=== PATIENT | male | born 1965 | race African-American/Black ===

== ENCOUNTER 2018-12-09 16:26 | Emergency (ER) | payer OTHER ==
[2018-12-09] MEDS ORDERED: Acetaminophen 325 MG TAB ONE (17:11)
[2018-12-09] MEDS ORDERED: Ketorolac Tromethamine 30 MG/ML VIAL ONE (17:11)
[2018-12-09 17:19] LABS: #Basophils 0.1 thou/uL (0.0-0.2); #Eosinphils 0.2 thou/uL (0.0-0.7); #Lymphocytes 1.6 thou/uL (1.20-3.40); #Monocytes 0.6 thou/uL (0.11-0.59); #Neutrophils 3.1 thou/uL (1.40-6.50); %Eosinophils 3.5 % (0.0-10.0); %Lymphocytes 29.1 % (21.0-51.0); %Monocytes 10.4 % (0.0-10.0); %Neutrophils 56.1 % (42.0-75.0); Hemoglobin 13.4 g/dL (14.0-18.0); Mean Corpuscular HGB CONC 33.3 g/dL (32.0-36.0); Mean Corpuscular Hemoglobin 30.5 pg (27.0-31.0); Mean Corpuscular Volume 91.4 fL (78.0-98.0); Mean Platelet Volume 8.5 fL (7.4-10.4); Platelet Count 183 thou/uL (130-400); RBC Distribution Width 12.6 % (11.5-14.5); Red Blood Cell (RBC) Count 4.39 mill/uL (4.70-6.10); White Blood Cell (WBC) Count 5.6 thou/uL (4.8-10.8)
--- NOTE | 2018-12-09 17:23 | RAD ---
Left knee 4 views: HISTORY: Atraumatic knee pain FINDINGS: Degenerative changes are present manifested by osteophyte formation and joint space narrowing. No fra cture, dislocation or bony destruction is identified. IMPRESSION: Left knee osteoarthritis
[2018-12-09 17:41] LABS: ALT (SGPT) 22 U/L (8-55); AST (SGOT) 16 U/L (5-34); Albumin 3.9 g/dL (3.5-5.0); Alkaline Phosphatase 89 U/L (40-150); Anion Gap 10 mmol/L (10-20); BUN (Urea Nitrogen) 17 mg/dL (8.4-25.7); Bilirubin, Total 0.2 mg/dL (0.2-1.2); Calc. Creatinine Clearance 0 mL/min (70-130); Calcium 8.9 mg/dL (7.8-10.44); Carbon Dioxide 27 mmol/L (22-29); Chloride 108 mmol/L (98-107); Estimated GFR-MDRD 73; Globulin 2.6 g/dL (2.4-3.5); Glucose 99 mg/dL (70-105); Potassium 4.4 mmol/L (3.5-5.1); Protein, Total 6.5 g/dL (6.0-8.3); Sodium 141 mmol/L (136-145)
--- NOTE | 2018-12-09 18:32 | ULT ---
VENOUS DOPPLER ULTRASOUND LEFT LOWER EXTREMITY: History: Left lower extremity pain. FINDINGS: Grayscale, color flow, and spectral doppler imaging of the deep venous system of the left lower extre mity was performed. There is good flow, compression, and augmentation noted in the left common femoral, femoral, deep fem oral, popliteal, posterior tibial, and greater saphenous veins. There is a small fluid collection in the lateral side of the left knee without evidence of flow. IMPRESSION: No evidence of DVT in the left lower extremity. POS: JORY
== END 2018-12-09 18:29 | disposition home or self-care (01) ==
LOC: ERS 16:26
DX: M17.12 Unilateral primary osteoarthritis, left knee (principal); K21.9 Gastro-esophageal reflux disease without esophagitis; Z79.899 Other long term (current) drug therapy
CPT/HCPCS: 36415; 80053; 85025; 85379; 85652; 86140; 96372; J1885

== ENCOUNTER 2020-05-10 12:24 | Emergency (ER) | payer OTHER ==
[2020-05-10] MEDS ORDERED: Morphine 4 MG/ML VIAL ONE (12:42)
--- NOTE | 2020-05-10 13:38 | CT ---
CT BRAIN WITHOUT CONTRAST: History: Head/facial trauma on a cabinet at his house. No loss of consciousness. Laceration of the br idge of the nose. Technique: Multiple contiguous axial images were obtained in a CT of the brain without contrast. FINDINGS: The brain is normal in morphology and attenuation without focal lesions or confluent areas of infarct ion. There is no evidence of hydrocephalus, intracranial hemorrhage, or extraaxial fluid collection. The calvarium and overlying soft tissues are unremarkable. There is mucosal thickening in the right s phenoid sinus. The other paranasal sinuses and mastoid air cells are well aerated. IMPRESSION: No evidence of acute intracranial abnormality. POS: EAA
--- NOTE | 2020-05-10 13:41 | CT ---
CT FACE WITHOUT CONTRAST: Comparison: None History: Patient hit the bridge of this nose on a cabinet at home with facial trauma and pain. There is a laceration over the bridge of the nose. Technique: Multiple contiguous axial images were obtained in a CT of the face without contrast. Sagit jorge and coronal reformats were performed. FINDINGS: Mucosal thickening is seen in the right sphenoid sinus. The other paranasal sinuses and mastoid air c ells are well aerated. No focal facial soft tissue swelling is seen. The globes and retrobulbar soft tissues are unremarkable. No facial fractures are identified. IMPRESSION: No evidence of facial fracture. POS: EAA
== END 2020-05-10 15:03 | disposition home or self-care (01) ==
LOC: ERS 12:24
DX: S01.21XA Laceration without foreign body of nose, initial encounter (principal); K21.9 Gastro-esophageal reflux disease without esophagitis; F41.9 Anxiety disorder, unspecified; F32.9 Major depressive disorder, single episode, unspecified; F20.9 Schizophrenia, unspecified; Z79.899 Other long term (current) drug therapy; W22.8XXA Striking against or struck by other objects, initial encounter
CPT/HCPCS: 12011; 70450; 70486; 96372; J2270

== ENCOUNTER 2021-04-24 12:09 | Emergency (ER) | payer OTHER | END 2021-04-24 15:17 | disposition home or self-care (01) | LOC: ERS 12:09 | DX: Z48.02 Encounter for removal of sutures (principal); K21.9 Gastro-esophageal reflux disease without esophagitis; Z79.899 Other long term (current) drug therapy ==

== ENCOUNTER 2021-08-21 15:56 | Inpatient (IN) | payer OTHER ==
[2021-08-21] MEDS ORDERED: Lorazepam 2 MG/ML VIAL ONE (16:25)
[2021-08-21] MEDS ORDERED: Fentanyl 100 MCG/2 ML VIAL ONE (16:26)
[2021-08-21] MEDS ORDERED: Ketorolac Tromethamine 30 MG/ML VIAL ONE (16:26)
[2021-08-21] MEDS ORDERED: Ondansetron ODT 4 MG TAB SL PRN (18:15)
[2021-08-21] MEDS ORDERED: Ondansetron PF 4 MG/2 ML Vial IVP PRN ×2 (18:15→19:45)
[2021-08-21 18:31] LABS: #Eosinphils 0.3 thou/uL (0.0-0.7); #Lymphocytes 1.4 thou/uL (1.20-3.40); #Monocytes 0.5 thou/uL (0.11-0.59); #Neutrophils 4.5 thou/uL (1.40-6.50); %Basophils 0.2 % (0.0-1.0); %Eosinophils 4.2 % (0.0-10.0); %Lymphocytes 21.1 % (21.0-51.0); %Monocytes 7.3 % (0.0-10.0); %Neutrophils 67.3 % (42.0-75.0); Hemoglobin 13.3 g/dL (14.0-18.0); Mean Corpuscular HGB CONC 34.1 g/dL (32.0-36.0); Mean Corpuscular Hemoglobin 28.8 pg (27.0-31.0); Mean Corpuscular Volume 84.6 fL (78.0-98.0); Mean Platelet Volume 8.7 fL (7.4-10.4); Platelet Count 202 thou/uL (130-400); RBC Distribution Width 15.2 % (11.5-14.5); Red Blood Cell (RBC) Count 4.62 mill/uL (4.70-6.10); White Blood Cell (WBC) Count 6.7 thou/uL (4.8-10.8)
[2021-08-21 18:43] LABS: INR-International Normal Ratio 0.9; PTT 28.4 sec (22.9-36.1); Prothrombin Time 12.5 sec (12.0-14.7)
[2021-08-21 18:56] LABS: ALT (SGPT) 12 U/L (8-55); AST (SGOT) 15 U/L (5-34); Albumin 3.6 g/dL (3.5-5.0); Alkaline Phosphatase 169 U/L (40-110); Anion Gap 10 mmol/L (10-20); BUN (Urea Nitrogen) 12 mg/dL (8.4-25.7); Bilirubin, Total 0.2 mg/dL (0.2-1.2); Calc. Creatinine Clearance 0 mL/min (70-130); Calcium 9.1 mg/dL (7.8-10.44); Carbon Dioxide 26 mmol/L (22-29); Chloride 108 mmol/L (98-107); Globulin 3.6 g/dL (2.4-3.5); Glucose 134 mg/dL (70-105); Potassium 4.3 mmol/L (3.5-5.1); Protein, Total 7.2 g/dL (6.0-8.3); Sodium 140 mmol/L (136-145)
[2021-08-21] MEDS ORDERED: Ondansetron ODT 4 MG TAB PO PRN (19:45)
[2021-08-21] MEDS ORDERED: Dextrose 50% Abboject 50 ML SYRINGE SLOW IVP PRN (19:45)
[2021-08-21] MEDS ORDERED: Dextrose 5% in Water 1,000 ML IV PRN (19:45)
[2021-08-21] MEDS ORDERED: hydrALAZINE 20 MG/ML VIAL SLOW IVP PRN (19:45)
[2021-08-21] MEDS ORDERED: traMADol HCl 50 MG TAB PO PRN ×2 (19:45)
[2021-08-21] MEDS: Sodium Chloride 0.9% 1,000 ML IV SCH (20:41)
[2021-08-21] MEDS: Acetaminophen 325 MG TAB PO SCH (20:47)
[2021-08-21] MEDS: Ibuprofen 200 MG TAB PO SCH (20:50)
[2021-08-21] MEDS: Famotidine 20 MG TAB PO SCH (20:50)
[2021-08-21 23:08] VITALS: BMI 43.3
[2021-08-22] MEDS: Acetaminophen 325 MG TAB PO SCH ×4 (03:09→21:30)
[2021-08-22] MEDS: Ibuprofen 200 MG TAB PO SCH ×3 (03:10→21:29)
[2021-08-22] MEDS: Cyclobenzaprine 10 MG TAB PO PRN (03:31)
[2021-08-22] MEDS: Sodium Chloride 0.9% 1,000 ML IV SCH (05:15)
[2021-08-22] MEDS: Famotidine 20 MG TAB PO SCH ×2 (09:04→21:29)
[2021-08-22] MEDS: Morphine 4 MG/ML VIAL SLOW IVP PRN (13:47)
[2021-08-22 17:28] LABS: SARS-CoV-2 PCR by NAA Not Detected (NotDetected)
[2021-08-22] MEDS: Zolpidem Tartrate 5 MG TAB PO SCH (21:29)
[2021-08-22 22:18] LABS: Amphetamine Not Detected (NotDetected); Barbiturates Screen Not Detected (NotDetected); Benzodiazepine Screen Detected (NotDetected); Cocaine Metabolite Screen Detected (NotDetected); Methadone Not Detected (NotDetected); Methamphetamine Not Detected (NotDetected); Opiate Screen Detected (NotDetected); Oxycodone Screen Not Detected (NotDetected); Phencyclidine (PCP) Not Detected (NotDetected); THC/Cannabinoid Screen Not Detected (NotDetected); Tricyclic Screen Not Detected (NotDetected)
[2021-08-23] MEDS: Acetaminophen 325 MG TAB PO SCH ×4 (01:39→20:50)
[2021-08-23] MEDS: Ibuprofen 200 MG TAB PO SCH ×3 (05:20→20:50)
[2021-08-23 05:40] LABS: Anion Gap 11 mmol/L (10-20); BUN (Urea Nitrogen) 12 mg/dL (8.4-25.7); Calc. Creatinine Clearance 141 mL/min (70-130); Calcium 8.7 mg/dL (7.8-10.44); Carbon Dioxide 26 mmol/L (22-29); Chloride 106 mmol/L (98-107); Glucose 105 mg/dL (70-105); Magnesium 2.1 mg/dL (1.6-2.6); Phosphorus 3.5 mg/dL (2.3-4.7); Potassium 3.9 mmol/L (3.5-5.1); Sodium 139 mmol/L (136-145)
[2021-08-23 05:43] LABS: Eosinophils 1 % (0-10); Hemoglobin 12.6 g/dL (14.0-18.0); Hypochromia SLIGHT = 6-15 cells (100X) (0-5/hpf); Lymphocytes 46 % (21-51); MDiff Complete? YES; Mean Corpuscular HGB CONC 33.3 g/dL (32.0-36.0); Mean Corpuscular Hemoglobin 28.9 pg (27.0-31.0); Mean Corpuscular Volume 86.7 fL (78.0-98.0); Mean Platelet Volume 8.7 fL (7.4-10.4); Monocytes 9 % (0-10); Neutrophil 41 % (42-75); Platelet Count 165 thou/uL (130-400); Platelet Morphology Comment Appears Adequate; RBC Distribution Width 15.2 % (11.5-14.5); Reactive Lymphocytes 3 % (0-10); Red Blood Cell (RBC) Count 4.35 mill/uL (4.70-6.10); White Blood Cell (WBC) Count 5.3 thou/uL (4.8-10.8)
[2021-08-23] MEDS ORDERED: ceFAZolin 2 GM/Dextrose 50 ML 2 GM in Premix Bag 1 BAG IVPB SCH (08:30)
[2021-08-23] MEDS: Famotidine 20 MG TAB PO SCH ×2 (09:27→20:50)
[2021-08-23] MEDS: Bupropion 100 MG SR TAB PO SCH (09:27)
[2021-08-23] MEDS ORDERED: Neomycin-Polymyxin 1 ML AMP ONE (10:46)
[2021-08-23] MEDS ORDERED: ceFAZolin 2 GM/DEX 5% 100 ML BAG ONE (10:59)
[2021-08-23] MEDS ORDERED: Fentanyl 100 MCG/2 ML VIAL ONE ×5 (11:23→16:21)
[2021-08-23] MEDS ORDERED: Midazolam HCl 2 mg/2 ml Vial ONE (11:34)
[2021-08-23] MEDS ORDERED: Rocuronium Bromide 10 MG/ML (10ML VIAL) ONE (12:55)
[2021-08-23] MEDS ORDERED: Lidocaine 1% PF 5 ML VIAL ONE (12:55)
[2021-08-23] MEDS ORDERED: PROPOFOL 200 MG/20 ML VIAL ONE (12:55)
[2021-08-23] MEDS ORDERED: ePHEDrine 50 MG/ML VIAL ONE (12:55)
[2021-08-23] MEDS ORDERED: Bupivacaine HCl 0.5%/Epinephrine 1:200,000/PF 30 ml Vial ONE (12:55)
[2021-08-23] MEDS ORDERED: Albumin 5% 0 ML ONE (15:12)
[2021-08-23] MEDS ORDERED: Promethazine HCl 25 MG/ML VIAL IM PRN (15:54)
[2021-08-23] MEDS ORDERED: HYDROmorphone 2 MG/ML VIAL SLOW IVP PRN (15:54)
[2021-08-23] MEDS ORDERED: Promethazine HCl 25 MG/ML VIAL IVPB PRN (15:54)
[2021-08-23] MEDS ORDERED: Ondansetron HCl/PF 4 MG/2 ML Vial IVP PRN (15:54)
[2021-08-23] MEDS ORDERED: HYDROmorphone 0.5 MG/0.5 ML SYRINGE ONE (16:43)
[2021-08-23] MEDS: ceFAZolin 2 GM/Dextrose 50 ML 2 GM in Premix Bag 1 BAG IVPB SCH (17:23)
[2021-08-23] MEDS: Morphine 4 MG/ML VIAL SLOW IVP PRN ×2 (18:58→20:51)
[2021-08-23] MEDS: Cyclobenzaprine 10 MG TAB PO PRN (20:49)
[2021-08-23] MEDS: Zolpidem Tartrate 5 MG TAB PO SCH (20:50)
[2021-08-23] MEDS: Vancomycin 1.5 GRAM/300 ML BAG 1.5 GM in Premix Bag 1 BAG IVPB SCH (20:51)
[2021-08-24] MEDS: Acetaminophen 325 MG TAB PO SCH ×5 (03:22→21:20)
[2021-08-24] MEDS: ceFAZolin 2 GM/Dextrose 50 ML 2 GM in Premix Bag 1 BAG IVPB SCH (03:23)
[2021-08-24 05:09] LABS: #Lymphocytes 1.1 thou/uL (1.20-3.40); #Monocytes 0.4 thou/uL (0.11-0.59); #Neutrophils 10.5 thou/uL (1.40-6.50); %Eosinophils 0.2 % (0.0-10.0); %Lymphocytes 9.3 % (21.0-51.0); %Monocytes 3.2 % (0.0-10.0); %Neutrophils 87.4 % (42.0-75.0); Hemoglobin 11.6 g/dL (14.0-18.0); Mean Corpuscular HGB CONC 33.4 g/dL (32.0-36.0); Mean Corpuscular Hemoglobin 28.7 pg (27.0-31.0); Mean Corpuscular Volume 85.8 fL (78.0-98.0); Mean Platelet Volume 8.6 fL (7.4-10.4); Platelet Count 202 thou/uL (130-400); RBC Distribution Width 15.2 % (11.5-14.5); Red Blood Cell (RBC) Count 4.04 mill/uL (4.70-6.10); White Blood Cell (WBC) Count 12.1 thou/uL (4.8-10.8)
[2021-08-24] MEDS: Ibuprofen 200 MG TAB PO SCH ×3 (05:50→21:17)
[2021-08-24] MEDS: Morphine 4 MG/ML VIAL SLOW IVP PRN (05:50)
[2021-08-24] MEDS ORDERED: ceFAZolin 2 GM/Dextrose 50 ML 2 GM in Premix Bag 1 BAG IVPB SCH (08:15)
[2021-08-24] MEDS: Famotidine 20 MG TAB PO SCH ×2 (09:01→21:17)
[2021-08-24] MEDS: Vancomycin 1.5 GRAM/300 ML BAG 1.5 GM in Premix Bag 1 BAG IVPB SCH (09:01)
[2021-08-24] MEDS ORDERED: HYDROcodone/Acetaminophen 7.5/325 mg Tablet PO PRN (09:05)
[2021-08-24] MEDS: HYDROcodone/Acetaminophen 7.5/325 mg Tablet PO PRN ×3 (09:12→19:17)
[2021-08-24] MEDS: Bupropion 100 MG SR TAB PO SCH (10:13)
[2021-08-24] MEDS: tiZANidine HCl 4 MG TAB PO SCH ×2 (11:47→17:07)
[2021-08-24] MEDS: Zolpidem Tartrate 5 MG TAB PO SCH (21:17)
[2021-08-25] MEDS: Acetaminophen 325 MG TAB PO SCH ×3 (02:46→14:30)
[2021-08-25] MEDS: HYDROcodone/Acetaminophen 7.5/325 mg Tablet PO PRN ×2 (03:59→09:17)
[2021-08-25] MEDS: Ibuprofen 200 MG TAB PO SCH ×2 (04:00→12:05)
[2021-08-25] MEDS: tiZANidine HCl 4 MG TAB PO SCH ×4 (05:56→17:46)
[2021-08-25] MEDS ORDERED: FLU VACC QS2021-22(6MOS UP)/PF 60 MCG/0.5 ML SYRINGE IM ONE (09:00)
[2021-08-25] MEDS: Famotidine 20 MG TAB PO SCH (09:17)
[2021-08-25 16:09] VITALS: BP 129/81; TEMP 98.6
[2021-08-25] MEDS: Bupropion 100 MG SR TAB PO SCH (16:43)
== END 2021-08-25 17:30 | disposition left against medical advice (07) | DRG 470 ==
LOC: ERS 15:56 → SURG B 17:59
PROVIDERS: ADMIT Surgery; ATTEND Surgery
PROC: 0SR903A Replacement of Right Hip Joint with Ceramic Synthetic Substitute, Uncemented, Open Approach (ICD-10-PCS; principal; 2021-08-23)
DX: M16.11 Unilateral primary osteoarthritis, right hip (principal); Z68.41 Body mass index [BMI] 40.0-44.9, adult; Z20.822 Contact with and (suspected) exposure to COVID-19; E66.01 Morbid (severe) obesity due to excess calories; F32.A Depression, unspecified; F41.9 Anxiety disorder, unspecified; F20.9 Schizophrenia, unspecified; K21.9 Gastro-esophageal reflux disease without esophagitis; G89.29 Other chronic pain; Z91.041 Radiographic dye allergy status; Z90.49 Acquired absence of other specified parts of digestive tract; Z79.899 Other long term (current) drug therapy
CPT/HCPCS: 36415; 72170; 72192; 80048; 80053; 80306; 83735; 84100; 85025; 85610; 85730; 96374; 96375; C1713; J0690; J1170; J1885; J2060; J2250; J2270; J2704; J3010; J3370; J3490; J7050; P9045; U0003; U0005